=== PATIENT | male | born 2000 | race African-American/Black ===

== ENCOUNTER 2020-11-16 06:14 | Emergency (ER) | payer SELFPAY ==
[~2020-11-16] VITALS: Ht 170.2 cm; Wt 53.3 kg
--- NOTE | 2020-11-16 06:24 | NUR ---
INITIAL PT CONTACT, PT PRESENTS TO ED C/O ABCESS ON TONSILLS X4 DAYS WORSENING TODAY, DIFFICULTY SPEAKING D/T PAIN. HX OF SAME. PT SITTING UPRIGHT ON NICCI PRICE, VSS. CALL LIGHT AND BELONGINGS WITHIN REACH. FRIEND AT BEDSIDE. ERP AT BEDSIDE
[2020-11-16] MEDS ORDERED: SODIUM CHLORIDE 0.9% 1,000ML IVBOLUS ONE (06:30)
[2020-11-16] MEDS ORDERED: ONDANSETRON 2MG/ML, 2ML IVPush ONE (06:30)
[2020-11-16] MEDS ORDERED: SODIUM CHLORIDE FLUSH 10ML SYR IVF ONE (06:30)
[2020-11-16] MEDS ORDERED: DEXAMETHASONE 4 MG/ML, 1ML IVPush ONE (06:30)
[2020-11-16] MEDS ORDERED: CEFTRIAXONE PMX 1GM/50ML 50 ML IVPB ONE (06:30)
[2020-11-16] MEDS ORDERED: HYDROmorphone 1 MG/ML, 1ML INJ IVPush PRN (06:30)
[2020-11-16] MEDS ORDERED: CEFTRIAXONE PMX 1GM/50ML 50 ML ONE (06:45)
[2020-11-16] MEDS ORDERED: DEXAMETHASONE 4 MG/ML, 5ML ONE (06:45)
[2020-11-16] MEDS ORDERED: ONDANSETRON 2MG/ML, 2ML ONE (06:45)
[2020-11-16] MEDS ORDERED: PLEASE ENTER ALLERGIES MC SCH (07:00)
--- NOTE | 2020-11-16 07:00 | NUR ---
late note: 0700: assumed care of pt. report from Miriam AGUILAR pt here for swelling to throat and difficulty swallowing pt has significant swelling to tonsillar area. pt is sitting up on gutney and has suction available at bedside pt has been medicated per order SO at bedside
--- NOTE | 2020-11-16 07:01 | NUR ---
BEDSIDE REPORT TO MICHELA AGUILAR
[2020-11-16] MEDS ORDERED: BENZOCAINE 20% SPRAY 0.5ML ONE (07:49)
[2020-11-16] MEDS ORDERED: BENZOCAINE 20% SPRAY 0.5ML TP ONE (08:00)
--- NOTE | 2020-11-16 08:10 | NUR ---
late note: 3010 pt reports refuctiosn of pain after meds and that he has had some decreased swelling denies SOB. using suction at bedside
--- NOTE | 2020-11-16 09:00 | NUR ---
late note: 0900 pt report that he is feeling better. sitting up on gurney on cell phone. SO at bedside no new c/o. no SOB. pt rpeorts that he is able to swallow better now
[2020-11-16 09:51] VITALS: BP 109/41
--- NOTE | 2020-11-16 10:30 | NUR ---
this pt was D/C by another RN
== END 2020-11-16 10:16 | disposition home or self-care (01) ==
LOC: ED 07:15
DX: J36 Peritonsillar abscess (principal); R50.9 Fever, unspecified
CPT/HCPCS: 42700; 96365; 96375; 99284; J0696; J1100; J2405; J7030